=== PATIENT | male | born 1985 | race Caucasian/White ===

== ENCOUNTER 2020-10-30 14:28 | Emergency (ER) | payer OTHER ==
[~2020-10-30] VITALS: Ht 180.3 cm; Wt 102.1 kg
[2020-10-30] MEDS ORDERED: HYDROCODONE-AC1 EAC7 PO (14:49)
[2020-10-30] MEDS ORDERED: METPRE4DP PO (16:34)
== END 2020-10-30 19:00 | disposition home or self-care (01) ==
LOC: ER 14:28
DX: M54.16 Radiculopathy, lumbar region (principal); Z88.0 Allergy status to penicillin; Z88.5 Allergy status to narcotic agent
CPT/HCPCS: 36415; 72131; 96374; 96375; 96376; 99284-25; J1170; J1885; J2060; J7512